=== PATIENT | female | born 1985 | race Hispanic/Latino ===

== ENCOUNTER 2016-10-06 11:37 | Emergency (ER) | payer OTHER ==
[2016-10-06 12:04] VITALS: BP 123/67; PULSE 72; RESP 18; TEMP 98; O2SAT 99
--- NOTE | 2016-10-06 13:03 | ED PDOC ---
HPI: Female Pain Time Seen by Provider: 10/06/16 12:40 Chief Complaint (Nursing): Female Genitourinary Chief Complaint (Provider): Possible Ectopic History Per: Patient Additional Complaint(s): Pt is a 31 yo female, no PMH, presents to ED in order to undergo ultrasound evaluation of a possible heterotopic . Pt is , ~ 7 weeks , seen and evaluated by Dr. Dunbar today for her first appointment. Pt had TV US done in office and cystic structure was noted on the ovary, as well as a SLIUP. Dr. Dunbar sent Pt to ED for repeat US and official read. Pt Asymptomatic otherwise, no pain or bleeding. Past Medical History Reviewed: Nursing Documentation, Vital Signs Vital Signs: Last Vital Signs Temp 98 F 10/06/16 12:01 Pulse 72 10/06/16 12:01 Resp 18 10/06/16 12:01 BP 123/67 10/06/16 12:01 Pulse Ox 99 10/06/16 12:01 - Medical History PMH: No Chronic Diseases - Surgical History Surgical History: No Surg Hx - Family History Family History: States: No Known Family Hx - Living Arrangements Living Arrangements: With Family - Social History Current smoker - smoking cessation education provided: No Alcohol: None Drugs: Denies - Allergies Allergies/Adverse Reactions: Allergies Allergy/AdvReac Type Severity Reaction Status Date / Time No Known Allergies Allergy Verified 10/06/16 12:01 Review of Systems ROS Statement: Except As Marked, All Systems Reviewed And Found Negative Physical Exam - Reviewed Nursing Documentation Reviewed: Yes Vital Signs Reviewed: Yes - Physical Exam Appears: Positive for: Well, Non-toxic, No Acute Distress Head Exam: Positive for: ATRAUMATIC, NORMAL INSPECTION, NORMOCEPHALIC Skin: Positive for: Normal Color, Warm, DRY Eye Exam: Positive for: EOMI, Normal appearance, PERRL ENT: Positive for: Normal ENT Inspection Neck: Positive for: Normal, Painless ROM Cardiovascular/Chest: Positive for: Regular Rate, Rhythm Respiratory: Positive for: CNT, Normal Breath Sounds Gastrointestinal/Abdominal: Positive for: Normal Exam, Bowel Sounds, Soft Back: Positive for: Normal Inspection Extremity: Positive for: Normal ROM Neurologic/Psych: Positive for: Alert, Oriented - ECG O2 Sat by Pulse Oximetry: 99 Medical Decision Making Medical Decision Making: PROCEDURE: ultrasound HISTORY: r/o heterotopic COMPARISON: None available. TECHNIQUE: TStandard protocol for this study/examination. FINDINGS: LMP: 08/15/2016 Prior examinations from the current : TECHNIQUE: Real-time 2D imaging, duplex and color Doppler. FINDINGS: Cardiac activity: Present Rate: 136 BPM Measurements: [place] rump length: 0.69 cm Gestational age based on CRL 6 weeks 4 days Gestational age based on gestational sac measurement 6 weeks 4 days Gestational age derived from LMP: 7 weeks 3 days DELROY based on LMP: 05/22/2017 DELROY based on biometry: 05/28/2017 Gestational concordance documented Yolk sac identified Uterus: Unremarkable. No Cervical abnormalities: Negative examination for cervical dilatation or effacement. Cervical length 3.00 cm Subchorionic hemorrhage: None Maternal uterus 4.1 x 5.3 x 7.2 cm. Unremarkable ADNEXA: Right: 3.1 x 1.7 cm. Multiple subcentimeter follicles. Normal Doppler arterial waveform documented. Left: 2.7 x 3 cm. Solid mass within the left ovary 1.9 x 2 cm. This has a hypervascular rim. Concurrent ectopic gestation should be considered. Incidental finding(s):Para adnexal cyst likely corpus luteum cyst 1.8 x 1.5 cm Normal Doppler arterial waveform documented Fluid in the cul-de-sac: None. IMPRESSION: 1. 6 weeks 4 days live intrauterine gestation. Gestational concordance documented. 2. Left adnexal cyst likely corpus luteum cyst. 3. Solid hypervascular mass left adnexa. Concurrent ectopic gestation is possible. This measures approximately 2 cm. The presence of a concomitant ectopic gestation should be considered in the appropriate clinical setting. Results discussed with CUSTOM FURRIER on-call, Dr. Butler, who advised Pt needs to have a repeat US done with Dr. Dunbar in office in 48 hours. Return to ED if at anytime pain or bleeding develop. Pt understands US report and instructions. Disposition - Clinical Impression Clinical Impression: Ectopic with intrauterine - Patient ED Disposition Is Patient to be Admitted: No - Disposition Disposition: Routine/Home Disposition Time: 16:53 Condition: STABLE Additional Instructions: Repeat US with Dr. Dunbar in 48 hours! return to ED sooner if at anytime condition worsens Instructions: Ectopic (ED) - POA Present On Arrival: None
--- NOTE | 2016-10-06 16:33 | US ---
PROCEDURE: ultrasound HISTORY: r/o heterotopic COMPARISON: None available. TECHNIQUE: TStandard protocol for this study/examination. FINDINGS: LMP: 08/15/2016 Prior examinations from the current : TECHNIQUE: Real-time 2D imaging, duplex and color Doppler. FINDINGS: Cardiac activity: Present Rate: 136 BPM Measurements: [place] rump length: 0.69 cm Gestational age based on CRL 6 weeks 4 days Gestational age based on gestational sac measurement 6 weeks 4 days Gestational age derived from LMP: 7 weeks 3 days DELROY based on LMP: 05/22/2017 DELROY based on biometry: 05/28/2017 Gestational concordance documented Yolk sac identified Uterus: Unremarkable. No Cervical abnormalities: Negative examination for cervical dilatation or effacement. Cervical length 3.00 cm Subchorionic hemorrhage: None Maternal uterus 4.1 x 5.3 x 7.2 cm. Unremarkable ADNEXA: Right: 3.1 x 1.7 cm. Multiple subcentimeter follicles. Normal Doppler arterial waveform documented. Left: 2.7 x 3 cm. Solid mass within the left ovary 1.9 x 2 cm. This has a hypervascular rim. Concurrent ectopic gestation should be considered. Incidental finding(s):Para adnexal cyst likely corpus luteum cyst 1.8 x 1.5 cm Normal Doppler arterial waveform documented Fluid in the cul-de-sac: None. IMPRESSION: 1. 6 weeks 4 days live intrauterine gestation. Gestational concordance documented. 2. Left adnexal cyst likely corpus luteum cyst. 3. Solid hypervascular mass left adnexa. Concurrent ectopic gestation is possible. This measures approximately 2 cm. The presence of a concomitant ectopic gestation should be considered in the appropriate clinical setting.
== END 2016-10-06 16:57 | disposition home or self-care (01) ==
LOC: H.ER 11:37
DX: O00.01 Abdominal pregnancy with intrauterine pregnancy (principal); Z3A.01 Less than 8 weeks gestation of pregnancy; N83.202 Unspecified ovarian cyst, left side

== ENCOUNTER 2017-05-25 20:04 | Inpatient (IN) | payer OTHER ==
[2017-05-25 20:56] VITALS: BMI 34.2
[2017-05-25] MEDS ORDERED: Oxytocin 30 UNITS in Sodium Chloride 0.9% 500 ML IV SCH (21:00)
[2017-05-25] MEDS ORDERED: Lactated Ringer's 1,000 ML IV SCH (21:15)
[2017-05-25 21:25] LABS: BASO % 0.4 % (0.0-2.0); EOS % 0.3 % (0.0-4.0); HEMOGLOBIN 11.6 g/dL (12.0-16.0); LYMPH # 1.9 K/uL (1.0-4.3); LYMPH % 14.3 % (20.0-40.0); MEAN CELL VOLUME 89.9 fl (81.0-99.0); MEAN CORPUSCULAR HEMOGLOBIN 30.5 pg (27.0-31.0); MEAN CORPUSCULAR HGB CONC 33.9 g/dL (33.0-37.0); MEAN PLATELET VOLUME 8.8 fl (7.2-11.7); MONO # 0.6 K/uL (0.0-0.8); MONO % 4.6 % (0.0-10.0); NEUT # 10.9 K/uL (1.8-7.0); NEUT % 80.4 % (50.0-75.0); NRBC % 0.1 % (0.0-0.0); RBC 3.79 Mil/uL (3.80-5.20); RED CELL DISTRIBUTION WIDTH 14.7 % (11.5-14.5); WHITE BLOOD COUNT 13.6 K/uL (4.8-10.8)
--- NOTE | 2017-05-25 21:49 | OBADHP ---
Datetime: 05/25/2017 21:05 Admit Comment, IP Provider: 32 yo at 40+3 wks in labor FHT reassuring, will follow GBS negative H_P dictated, "[id number]" (ES) Extremities - PN: Normal Abdomen - PN: Normal Back - PN: Normal Lungs - PN: Normal Heart - PN: Normal Neurologic - PN: Normal General - PN: Normal FHR - Baseline A Provider: 130's Membranes, Provider: Intact Contraction Comments Provider: Q2 Vital Signs Provider: Reviewed IP Chief Complaint: Uterine contractions NICHD Variability Prov Fetus A: Moderate 6-25bpm NICHD Accel Fetus A IP Provider: [id number] FHR Category Provider Fetus A: Category II NICHD Decel Fetus A IP Provider: Variable Dilatation, Provider: 5 Effacement, Provider: 100 Station, Provider: -1 Genitourinary Exam: Normal EGA AdmitDate IP: 40.3 IP Adm Impression: Term, intrauterine IP Admit Plan: Initiate labor protocol (Annotations: Data stored by CPN on behalf of user)
--- NOTE | 2017-05-26 00:34 | HP ---
HISTORY OF PRESENT ILLNESS: This is a 32-year-old G2, P0-0-1-0 at 40 weeks and 3 days with an EDC of 05/22/2017 by LMP, who presents with painful contractions that are now every 3 minutes. The patient reports that contractions started at 6:20 a.m. and became regular at 2:30 p.m. The patient denies vaginal bleeding and reports positive movement. The patient reports a little bit of leaking of fluid, but denies any gushes of fluid. The patient's care was with [facility] with Dr. Dunbar. 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 The patient is also beta thalassemia minor as per the problem list in her chart. The father of the baby has Marfan syndrome. Group B Strep was done on 2017 and was negative. The patient received Tdap on 05/12/2017 and received flu shot on 01/26/2017. PAST MEDICAL HISTORY: Healthy. PAST SURGICAL HISTORY: [place] teeth extraction. MEDICATIONS: [id number] Nexium, Diclegis and vitamins. ALLERGIES: NO KNOWN DRUG ALLERGIES. SOCIAL HISTORY: The patient denies tobacco or alcohol. No illicit drug use. FAMILY HISTORY: Father is due to alcoholism that led to liver and renal failure. Maternal grandfather is , had lung cancer. Maternal grandmother is and had thyroid disease. FOREIGN CLERK HISTORY: The patient reports menarche at 13 and history of regular periods when she did not have the IUD in place. The patient denies any sexually transmitted diseases and abdominal Pap smears. OB HISTORY: One termination. LABS: On 10/06/2016, HIV nonreactive, Horizon 4 (SMA, cystic fibrosis, fragile X, DMD) are negative. Varicella zoster virus immune. Blood type B negative, antibody screen negative. Hemoglobin, electrophoresis reveals increased hemoglobin. Urine culture no growth. RPR nonreactive. Rubella equivocal. Hepatitis B surface antigen negative. On 11/24/2016, her Pap was low-grade with positive high risk HPV. Gonorrhea and Chlamydia were negative. On 03/07/2017, HIV nonreactive. One-hour Glucola was 94 and RPR was nonreactive. On 04/27/2017, group B Strep was negative. PHYSICAL EXAMINATION: GENERAL: The patient appears uncomfortable during contractions. VITAL SIGNS: Afebrile. Stable. HEART: Regular rate and rhythm. CHEST AND LUNGS: Clear to auscultation bilaterally. EXTREMITIES: Nontender. Bilateral pedal edema. VAGINAL: 5 cm dilated, 100% effaced, -1 station at 8:36 p.m. EXTERNAL MONITORING: The baseline in the 130s with moderate variability and positive accelerations. Of note, the patient did have a deceleration that went down to the 80's lasting for about 3 minutes. Tocodynamometer: contractions appear irregular. ASSESSMENT AND PLAN: This is a 32-year-old G2, P0-0-1-0 at 40 weeks and 3 days in labor. The patient is admitted to labor and delivery, group B Streptococcus negative. heart tracing is overall reassuring. Will observe. Magdalene Desai MD MTDDiamond
[2017-05-26] MEDS ORDERED: Lidocaine 1% Inj (20ml) ONE (01:56)
[2017-05-26] MEDS ORDERED: Benzocaine/Menthol SPRAY TOP PRN (03:50)
[2017-05-26] MEDS ORDERED: Oxycodone/Acetaminophen 5/325 mg Tab PO PRN (03:50)
--- NOTE | 2017-05-26 04:10 | OBDS ---
DELIVERY PERSONNEL Delivery Doctor: Renu Desai MD Guard Captain: Amber Mejia RN MATERNAL INFORMATION Delivery Anesthesia: Local Medications in Delivery: PITOCIN 30 UNITS IN 500 ML NS Estimated Blood Loss (ml): 300 Placenta Cultured: No Provider Comments: Pt progressed to complete and pushed to deliver a viable female infant through cl ear fluid at 02:41 am. Apgars 9 and 9. Wt 8#11, 3935 gms. Infant placed on mother's abdomen. Cord doubly clamped and FOB cut the cord. Placenta delivered spontaneously intact w/ a 3vc at 03:06am. 1% lidocaine injected into perineum and vagina. Second degree tear repaired w/ 0-v, 2-0 rapide, and 3-0v. Rectum intact . Pt and baby tolerated procedure well. EBL 300mL LABOR SUMMARY EDC: 05/22/2017 00:00 No. Babies in Womb: 1 Attempted: No Labor Anesthesia: None LABOR INFORMATION Reason for Induction: Not Applicable Onset of Labor: 05/25/2017 14:30 Complete Dilatation: 05/26/2017 01:30 Oxytocin: N/A Group B Beta Strep: Negative Antibiotics # of Doses: 0 Steroids Given: None Reason Steroids Not Administered: Not Applicable MEMBRANES Membranes Rupture Method: Spontaneous Rupture of Membranes: 05/26/2017 01:20 Length of Rupture (hrs): 1.35 Amniotic Fluid Color: Clear Amniotic Fluid Amount: Moderate STAGES OF LABOR Stage 1 hrs: 11 Stage 1 min: 0 Stage 2 hrs: 1 Stage 2 min: 11 Stage 3 hrs: 0 Stage 3 min: 25 Total Time in Labor hrs: 12 Total Time in Labor min: 36 VAGINAL DELIVERY Episiotomy: None Initial Vag Sponge Count: 15 Initial Vag Sharps Count: 0 BABY A INFORMATION Infant Delivery Date/Time: 05/26/2017 02:41 Method of Delivery: Vaginal Born in Route : No : N/A Forceps: N/A Vacuum Extraction: N/A Shoulder Dystocia : No SHOULDER DYSTOCIA BABY A Infant Delivery Date/Time: 05/26/2017 02:41 PRESENTATION/POSITION BABY A Presentation: Cephalic Cephalic Presentation: Vertex Breech Presentation: N/A PLACENTA INFORMATION BABY A Placenta Delivery Time : 05/26/2017 03:06 Placenta Method of Delivery: Spontaneous Placenta Status: Delivered SCORES BABY A Heart Rate 1 min: >100 bpm Resp Effort 1 min: Good Cry Reflex Irritability 1 min: Cough or Sneeze or Pulls Away Muscle Tone 1 min: Active Motion Color 1 min: Body [place], Extremities Blue Resuscitation Effort 1 min: Tactile Stimulation SCORE 1 MIN: 9 Heart Rate 5 min: >100 bpm Resp Effort 5 min: Good Cry Reflex Irritability 5 min: Cough or Sneeze or Pulls Away Muscle Tone 5 min: Active Motion Color 5 min: Body [place], Extremities Blue Resuscitation Effort 5 min: N/A SCORE 5 MIN: 9 INFANT INFORMATION BABY A Gestational Age at Delivery: 40.4 Gestational Status: Term Outcome : Liveborn Infant Condition : Stable Infant Sex: Female IDENTIFICATION/MEDS BABY A ID Band Number: [id number] ID Band Location: Left Leg; Left Arm WEIGHT/LENGTH BABY A Infant Birthweight (gms): 3935 Infant Weight (lb): 8 Infant Weight (oz): 11 CORD INFORMATION BABY A No. Cord Vessels: 3 Suction: None
[2017-05-27 07:07] LABS: BASO % 0.2 % (0.0-2.0); EOS # 0.1 K/uL (0.0-0.7); EOS % 0.4 % (0.0-4.0); HEMOGLOBIN 8.2 g/dL (12.0-16.0); LYMPH % 19.4 % (20.0-40.0); MEAN CELL VOLUME 90.7 fl (81.0-99.0); MEAN CORPUSCULAR HEMOGLOBIN 30.6 pg (27.0-31.0); MEAN CORPUSCULAR HGB CONC 33.7 g/dL (33.0-37.0); MEAN PLATELET VOLUME 8.7 fl (7.2-11.7); MONO # 0.8 K/uL (0.0-0.8); NEUT # 11.5 K/uL (1.8-7.0); RBC 2.69 Mil/uL (3.80-5.20); RED CELL DISTRIBUTION WIDTH 14.6 % (11.5-14.5); WHITE BLOOD COUNT 15.3 K/uL (4.8-10.8)
--- NOTE | 2017-05-27 10:53 | OBPPN ---
Datetime: 05/27/2017 10:46 PP Pain Prov: Within normal limits PP Nausea Prov: Denies PP Flatus Prov: Yes PP Breasts Prov: Normal PP Heart Prov: Normal PP Lungs Prov: Normal PP Abdomen/Uterus Prov: Normal PP Lochia Prov: Normal PP Vulva/Perineum Prov: Normal PP CVA Tenderness Prov: Normal PP Extremities Prov: Normal PP Comments Phys Exam Prov: Fundus firm under umbilicus PP Progress Note Prov: patient denies CP, no N/V, tolerating PO diet, ambulating/voiding well, mild lochia, abdominal pain tolerable with meds A/P PPD#1 1. Reg diet 2. Motrin prn pain 3. Encourage ambulation/ Vital Signs Provider PP: Reviewed; Within Normal Limits
[2017-05-27] MEDS ORDERED: Benzocaine/Menthol SPRAY TOP PRN (15:22)
[2017-05-27] MEDS ORDERED: Oxycodone/Acetaminophen 5/325 mg Tab PO PRN (15:22)
[2017-05-28] MEDS ORDERED: Measles, Mumps, and Rubella 0.5 ML VIAL SC ONE (13:45)
--- NOTE | 2017-05-28 14:04 | OBPPN ---
Datetime: 05/28/2017 14:01 PP Pain Prov: Within normal limits PP Nausea Prov: Denies PP Flatus Prov: Yes PP Breasts Prov: Normal PP Heart Prov: Normal PP Lungs Prov: Normal PP Abdomen/Uterus Prov: Normal PP Lochia Prov: Normal PP Vulva/Perineum Prov: Normal PP CVA Tenderness Prov: Normal PP Extremities Prov: Normal PP Comments Phys Exam Prov: Abd: Soft, NT, BS- present UT- Firm, NT PP Impression Prov: Normal progression PP Plan Prov: Discharge PP Progress Note Prov: S/P , PPD#2 Clinically Stable. Plan: D/C Home. Vital Signs Provider PP: Reviewed
--- NOTE | 2017-05-28 14:06 | OBDCSUM ---
Datetime: 05/28/2017 14:04 Discharged to, Provider: Home Follow up at, Provider: Dr Rock Disch Instr Activity: Normal activity Disch Instr Diet: Regular Discharge Instructions, Provider: Routine instructions given Discharge Diagnosis, Provider: Term Delivered Discharge Time: 05/28/2017 14:04 Follow up in weeks, Provider: 4-6 weeks Disch Referrals: None Contraception discussed, Prov: Yes Discharge Comment, Provider: S/P , PPD#2, Clinically Stable Discharge Diagnosis Prov Other: S/P , PPD#2, Clinically Stable
[2017-05-28 23:56] VITALS: BP 96/66; PULSE 105; RESP 19; TEMP 99.1; O2SAT 98
== END 2017-05-28 14:30 | disposition home or self-care (01) | DRG 775 ==
LOC: H.EROB2 20:04 → H.L&D 20:56 → H.OB/GYN 05-26 05:17
PROVIDERS: ADMIT Obstetrics & Gynecology; ATTEND Obstetrics & Gynecology
PROC: 4A1HXCZ Monitoring of Products of Conception, Cardiac Rate, External Approach (ICD-10-PCS; 2017-05-25)
PROC: 10E0XZZ Delivery of Products of Conception, External Approach (ICD-10-PCS; principal; 2017-05-26)
PROC: 0KQM0ZZ Repair Perineum Muscle, Open Approach (ICD-10-PCS; 2017-05-26)
PROC: 3E0234Z Introduction of Serum, Toxoid and Vaccine into Muscle, Percutaneous Approach (ICD-10-PCS; 2017-05-26)
PROC: 3E0234Z Introduction of Serum, Toxoid and Vaccine into Muscle, Percutaneous Approach (ICD-10-PCS; 2017-05-28)
DX: O48.0 Post-term pregnancy (principal); O36.0930 Maternal care for other rhesus isoimmunization, third trimester, not applicable or unspecified; O70.1 Second degree perineal laceration during delivery; D56.3 Thalassemia minor; Z37.0 Single live birth; Z3A.40 40 weeks gestation of pregnancy; Z23 Encounter for immunization